=== PATIENT | male | born 1985 | race Caucasian/White ===

== ENCOUNTER 2016-06-12 16:25 | Inpatient (IN) | payer OTHER ==
--- NOTE | ~2016-06-12 | HP ---
Unit #: [id number] #: [id number] Patient: MARCO CRUZ [id number] [place] [address] [id number] I MR#: [id number] NAME: MARCO CRUZ ROOM: P184 Age: 31 Sex: M Admission Date: 06/12/2016 : 1985 Attending Physician: Al Matthews M.D. Admitting Physician: Al Matthews M.D. Primary Care Physician: Primary Care Physician No HISTORY AND PHYSICAL HISTORY OF PRESENT ILLNESS Marco is a 31 year old admitted to [facility] because of his continued polysubstance abuse. He has had numerous admissions to this facility. PAST MEDICAL HISTORY 1. Long history of polysubstance abuse to include IV drugs. 2. Hepatitis C. 3. Asthma. PAST SURGICAL HISTORY Right elbow. ALLERGIES No known drug allergies. SOCIAL HISTORY Smokes 1 pack per day. Denies alcohol. Admits to a long history of opioid abuse to include IV heroin. FAMILY HISTORY Medically noncontributory. REVIEW OF SYSTEMS CONSTITUTIONAL: No fever or chills. HEENT: Denies any sore throat, ear pain or runny nose. CARDIOVASCULAR: Denies chest pain, irregular heart rhythm or palpitations. CHEST: Denies shortness of breath or cough. No hemoptysis. GASTROINTESTINAL: Denies nausea, vomiting, diarrhea or chronic constipation. ENDOCRINE: Denies history of increased thirst or urination. No recent significant weight loss or gain. GENITOURINARY: Denies dysuria, frequency, or hematuria. SKIN: Denies any rashes. HEMATOLOGIC: Denies history of increased bleeding or bruising. MUSCULOSKELETAL: Denies any hot, swollen joints. No generalized muscle pain. NEUROLOGIC: Denies problems with vision or speech. No frequent, severe headaches. No numbness, tingling or weakness in any extremities. Denies loss of bladder or bowel control. CURRENT MEDICATIONS 1. Detox protocol. 2. Celexa 20 mg daily. Unit #: [id number] #: [id number] Patient: MARCO CRUZ 3. Proventil inhaler p.r.n. PHYSICAL EXAMINATION GENERAL: Alert, well-nourished, in no apparent distress. VITAL SIGNS: Blood pressure 100/50, heart rate 80, respirations 16, temperature 98.6. WEIGHT: 225. HEIGHT: 5 feet 11 inches. SKIN: Warm and dry without rash or lesion. HEENT: Normocephalic. TMs not viewed. Oral and nasal passages clear. Conjunctivae clear. PERRLA. EOMs intact. NECK: Supple without lymphadenopathy or thyromegaly. HEART: Regular rate and rhythm without murmur. LUNGS: Clear. ABDOMEN: Soft, nontender. : Not done. EXTREMITIES: No evidence of cyanosis, clubbing or edema. Moves all without focal deficit. NEUROLOGICAL: Grossly within normal limits. Cranial Nerves: II: Visual subramanian are intact. III, IV AND : Extraocular movements are intact. Pupils are equal, round and reactive to light. V: Facial sensation is grossly normal. VII: Facial movements and expression are normal. VIII: Auditory acuity grossly intact. IX, X: Uvula is midline. Phonation is normal. XI: Patient shrugs shoulders and turns head normally. XII: Tongue protrudes in the midline. Sensory and Motor Function: Sensory and motor sensation is grossly normal. Motor: moves all extremities well. Coordination: Gait is normal. Deep Tendon Reflexes: Intact. IMPRESSION Psychiatric admission. RECOMMENDATIONS PSYCHIATRIC: Per psychiatrist. MEDICAL: See no contraindications to participate in facility's activities. MEDICAL PROGNOSIS Good. MEDICAL CONDITION Stable. Dictated by... Daniel MoseleyAMuriel-Oneil. for Yuliana Ulloa/michell TD: 06/13/2016 17:00 JOB #: [id number] Unit #: [id number] #: [id number] Patient: MARCO CRUZ HISTORY AND PHYSICAL Page 1 of 1 X Ann Marie Jung HISTORY AND PHYSICAL
--- NOTE | ~2016-06-12 | PA ---
Unit #: [id number] #: [id number] Patient: MARCO CRUZ [id number] [place] [address] [id number] I MR#: [id number] NAME: MARCO CRUZ ROOM: P184 Age: 31 Sex: M Admission Date: 06/12/2016 : 1985 Date of Assessment: 06/13/2016 Attending Physician: Al Matthews M.D. Admitting Physician: Al Matthews M.D. Primary Care Physician: Primary Care Physician No PSYCHIATRIC ASSESSMENT INFORMANT(S) Patient, reliable. OLOP, reliable. CHIEF COMPLAINT Suicidal ideation and ongoing drug use. HISTORY OF PRESENT ILLNESS Marco is a 31-year-old man with several previous admissions to this facility who reports he has relapsed on the use of opioids. He has become increasingly depressed, hopeless, helpless, and had suicidal ideation with a plan to hang himself. He could not contract for safety and was admitted for stabilization. PAST PSYCHIATRIC HISTORY As noted, the patient had previous admissions to this facility for both chemical dependence and depression. He is noncompliant with antidepressant medications at this time. FAMILY PSYCHIATRIC HISTORY Please see previous assessment. SOCIAL HISTORY Marco is erratically housed and employed and has erratic psychosocial support. PAST MEDICAL HISTORY The patient suffers from asthma. MEDICATIONS Albuterol inhaler 2 puffs every 4 hours as needed for shortness of air. ALLERGIES None known. SUBSTANCE ABUSE HISTORY As noted the patient has an extensive history of opioid dependence. MENTAL STATUS EXAMINATION Marco presented as a mildly disheveled man who appeared his stated age. He was quiet but cooperative with the examination. Speech was soft but easily understood. Musculoskeletal examination was calm. Mood was depressed with congruent affect. He was alert and fully oriented. His memory and concentration were intact. His thought processes were logical Unit #: [id number] #: [id number] Patient: MARCO CRUZ with no active psychosis. He reported suicidal ideation with a plan to hang himself and could not contract for safety. Insight and judgment intact. Fund of knowledge and abstraction intact. ASSETS AND LIABILITIES The patient is youthful, voluntary for treatment. Liabilities: Include difficulty maintaining sobriety. ADMITTING DIAGNOSES AXIS I: Major depressive disorder, F33.2 Opioid dependence with withdrawal, F11.23. AXIS II: None acute. AXIS III: Asthma. PSYCHIATRIC PLAN/TREATMENT GOALS/DISCHARGE PLANNING Marco was admitted and placed on suicide precautions and opioid detox protocol. We will restart Celexa 20 mg daily and provide his albuterol inhaler as needed. He will enroll in dual diagnosis groups and activities. Treatment goals are resolution of SI, establishment of sobriety, improvement in insight, and improvement in coping skills. Discharge planning: Follow up with [facility] for mental health care and chemical dependence. ESTIMATED LENGTH OF STAY 5 days. Dictated by... Al Matthews M.D. CHARANJIT/michi TD: 06/14/2016 13:24 JOB #: [id number] PSYCHIATRIC ASSESSMENT Page 1 of 1 X Al Matthews MD PSYCHIATRIC ASSESSMENT
--- NOTE | ~2016-06-12 | DS ---
Unit #: [id number] #: [id number] Patient: MARCO CRUZ [id number] [place] [address] [id number] I MR#: [id number] NAME: MARCO CRUZ ROOM: P184 Age: 31 Sex: M Admission Date: 06/12/2016 : 1985 Discharge Date: 06/15/2016 Attending Physician: Al Matthews M.D. Primary Care Physician: Primary Care Physician No DISCHARGE SUMMARY REASON FOR ADMISSION Marco is a 31-year-old man with previous admission to this facility who recently overdosed, who relapsed in use of opiates. He had suicidal ideation with a plan to hang himself and was admitted for stabilization. LABORATORY DATA Please see hospital chart. HOSPITAL COURSE The patient was admitted and placed on suicide precautions and the opioid detox protocol. Citalopram 20 mg daily was restarted for depression and his albuterol inhaler was re-initiated. He had no significant adverse effects from his detox, and his physical examination was unremarkable. The patient participated only minimally in group activities, and on the date of discharge, he requested discharge against medical advice, declining to wait for followup to be arranged. At that time, he contracted for safety and was deemed to give a reliable contract. DISCHARGE DIAGNOSES AXIS I: Major depression, opioid dependence. AXIS II: None acute. AXIS III: Asthma. AXIS IV: AXIS V: DISCHARGE INSTRUCTIONS Instructions to the patient; follow up with chemical dependency program of the patient's choice and with his primary care physician. DISCHARGE MEDICATIONS None due to AMA nature of discharge. CONDITION AT DISCHARGE Fair. PROGNOSIS Fair. DIET AND ACTIVITY Ad nalini. Unit #: [id number] #: [id number] Patient: MARCO CRUZ Dictated by... Yuliana Carney/umesh TD: 08/23/2016 14:13 JOB #: [id number] DISCHARGE SUMMARY Page 1 of 1 X Al Matthews MD X DISCHARGE SUMMARY
== END 2016-06-15 15:45 | disposition left against medical advice (07) | DRG 894 ==
LOC: P1E 16:25
PROC: HZ2ZZZZ Detoxification Services for Substance Abuse Treatment (ICD-10-PCS; principal; 2016-06-12)
DX: F11.23 Opioid dependence with withdrawal (principal); R45.851 Suicidal ideations; F33.2 Major depressive disorder, recurrent severe without psychotic features; J45.909 Unspecified asthma, uncomplicated; B19.20 Unspecified viral hepatitis C without hepatic coma; F17.210 Nicotine dependence, cigarettes, uncomplicated

== ENCOUNTER 2016-06-29 21:00 | Inpatient (IN) | payer OTHER ==
--- NOTE | ~2016-06-29 | DS ---
Unit #: [id number] #: [id number] Patient: MARCO CRUZ [id number] [facility] [address] [place] [address] [id number] I MR#: [id number] NAME: MARCO CRUZ ROOM: 82 Age: 31 Sex: M Admission Date: 06/30/2016 : 1985 Discharge Date: 07/03/2016 Attending Physician: Al Matthews M.D. Primary Care Physician: Generic Doctor Not In System DISCHARGE SUMMARY REASON FOR ADMISSION Marco is a 31-year-old man with multiple admissions to this facility, who reports he was recently at a custodial house but relapsed on opiates. He had suicidal ideation and could not contract for safety. He was admitted for stabilization. DIAGNOSTIC STUDIES LABORATORY RESULTS: Please see hospital chart. HOSPITAL COURSE Marco was admitted and placed on suicide precautions and the opioid detox protocol. Since Celexa had not been effective in the past, Zoloft 50 mg daily was initiated for treatment of depression. He had [id number] detox symptomatology and participated rarely in groups and activities. On the date of discharge, he had obtained placement at a local custodial house and contracted for safety. DISCHARGE DIAGNOSES AXIS I: Major depression, opioid dependence. AXIS II: No diagnosis. AXIS III: History of hepatitis C. AXIS IV: AXIS V: DISCHARGE INSTRUCTIONS Follow up with primary care physician and custodial house of choice. DISCHARGE MEDICATIONS Zoloft 50 mg daily for depression. CONDITION AT DISCHARGE Fair. PROGNOSIS Fair. DIET AND ACTIVITY Ad nalini. Dictated by... Al Matthews M.D. Unit #: [id number] #: [id number] Patient: MARCO CRUZ [facility]/modl TD: 07/03/2016 23:32 JOB #: [id number] DISCHARGE SUMMARY Page 1 of 1 X Al Matthews MD X DISCHARGE SUMMARY
--- NOTE | ~2016-06-29 | PN ---
Unit #: [id number] #: [id number] Patient: MARCO CRUZ [id number] [facility] [address] [place] [address] [id number] MR#: [id number] NAME: MARCO CRUZ ROOM: P182 Age: 31 Sex: M Admission Date: 06/30/2016 : 1985 Attending Physician: Al Matthews M.D. Admitting Physician: Al Matthews M.D. Primary Care Physician: Generic Doctor Not In System [facility] PROGRESS NOTES DATE 07/02/2016 DISCUSSION Marco continues to have mild to moderate detox symptoms today and reports some ongoing thoughts of suicide. He is alert and fully oriented with no psychosis. He is not participating in unit groups and activities. ASSESSMENT Major depression, opiate dependence. PLAN Continue introduction of Zoloft and detox protocol. Dictated by... Al Matthews M.D. MRH/ts TD: 07/05/2016 07:44 JOB #: [id number] [facility] PROGRESS NOTES Page 1 of 1 X Al Matthews MD PROGRESS NOTE
--- NOTE | ~2016-06-29 | HP ---
Unit #: [id number] #: [id number] Patient: MARCO CRUZ [id number] [place] [address] [id number] I MR#: [id number] NAME: MARCO CRUZ ROOM: P182 Age: 31 Sex: M Admission Date: 06/30/2016 : 1985 Attending Physician: Al Matthews M.D. Admitting Physician: Al Matthews M.D. Primary Care Physician: Generic Doctor Not In System HISTORY AND PHYSICAL Marco is a 31-year-old male admitted on 06/30/[address] [facility] for detox from multiple substances. He had recent admission on 06/12/2016 for the same. I reviewed the history and physical from that admission and there are no changes. Dictated by... Meet Mcdowell/michell TD: 06/30/2016 15:37 JOB #: [id number] HISTORY AND PHYSICAL Page 1 of 1 X JACI VALLADARES APRN HISTORY AND PHYSICAL
--- NOTE | ~2016-06-29 | PA ---
Unit #: [id number] #: [id number] Patient: MARCO CRUZ [id number] [place] [address] [id number] I MR#: [id number] NAME: MARCO CRUZ ROOM: P182 Age: 31 Sex: M Admission Date: 06/30/2016 : 1985 Date of Assessment: 06/30/2016 Attending Physician: Al Matthews M.D. Admitting Physician: Al Matthews M.D. Primary Care Physician: Generic Doctor Not In System PSYCHIATRIC ASSESSMENT INFORMANTS Patient, reliable; OLOP, reliable. CHIEF COMPLAINT Suicidal ideation and detox. HISTORY OF PRESENT ILLNESS The patient is a 31-year-old man with multiple admissions to this facility and episodes of AMA discharge and relapse. The patient has been using heroin and crack and says he had suicide plan to "end it all" by overdosing on drugs. He is using three-quarters of a gram of heroin daily and 0.25 g daily of smoked crack cocaine. The patient recently lost his job due to a substance abuse problem and is temporarily homeless. He was unable to contract for safety and was readmitted for stabilization. PAST PSYCHIATRIC HISTORY This is this patient's 14th admission to this facility for chemical dependence and depression. He is typically noncompliant with treatment outside the hospital despite recommendations. FAMILY PSYCHIATRIC HISTORY Please see previous assessments. SOCIAL HISTORY As noted, the patient is single and has been working recently but lost his job due to complications from drug use. He is temporarily homeless with no financial and minimal psychosocial support. PAST MEDICAL HISTORY Significant for asthma. MEDICATIONS Albuterol inhaler 2 puffs every 4 hours as needed for shortness of air. ALLERGIES No known medication allergies. SUBSTANCE ABUSE HISTORY Extensive history of opioid dependence and stimulant abuse. MENTAL STATUS EXAMINATION The patient presented as a mildly disheveled man, who appeared his stated age. He was sleepy and had difficulty cooperating with the examination. Unit #: [id number] #: [id number] Patient: MARCO CRUZ VITAL SIGNS: Temperature 98.3, pulse 56, respirations 16, and blood pressure 121/65. Speech was soft and sparse. Musculoskeletal examination was slowed. Mood was irritable and depressed with a congruent affect. He was alert and appeared fully oriented. Memory and concentration appeared fair, but it was difficult to assess his thought processes due to his paucity of speech. He did endorse suicidal ideation with a plan to overdose on drugs. ASSETS AND LIABILITIES The patient is youthful and presents voluntarily for treatment. Liabilities include difficulty maintaining sobriety, recent loss of employment and threatened loss of housing. ADMITTING DIAGNOSIS AXIS I: Major depression F33.2. Opioid dependence with withdrawal, uncomplicated at F11.23. Cocaine abuse. AXIS II: No diagnosis. AXIS III: History of asthma. AXIS IV: AXIS V: PSYCHIATRIC PLAN The patient was admitted and placed on suicide precautions and the opioid detox protocol. Having failed several trials of Celexa, we will start Zoloft 50 mg daily. His albuterol inhaler will be provided as indicated. He will enroll in dual diagnosis treatment goals and activities. TREATMENT GOALS Resolution of SI, improvement in insight, establishment of sobriety, improvement in coping skills. DISCHARGE PLANNING Follow up with [facility]. ESTIMATED LENGTH OF STAY 5 days. Dictated by... Al Matthews M.D. CHARANJIT/umesh TD: 06/30/2016 14:33 JOB #: [id number] PSYCHIATRIC ASSESSMENT Page 1 of 1 X Al Matthews MD X PSYCHIATRIC ASSESSMENT
[2016-07-02 12:32] LABS: URINE APPEARANCE CLEAR; URINE BLOOD NEG (NEG); URINE COLOR DK YELLOW; URINE GLUCOSE NEG (NEG); URINE KETONE 2+ (NEG); URINE LEUKOCYTE ESTERASE NEG (NEG); URINE NITRATE NEG (NEG); URINE PROTEIN NEG (NEG); URINE SPECIFIC GRAVITY 1.033 (1.003-1.035)
[2016-07-02 12:40] LABS: URINE BILIRUBIN NEG (NEG)
[2016-07-02 12:42] LABS: AMPHETAMINE NEG (NEG); BARBITURATES NEG (NEG); BENZODIAZEPINES NEG (NEG); COCAINE NEG (NEG); MARIJUANA NEG (NEG); OPIATES POS (NEG); TRICYCLIC ANTIDEPRESSANTS NEG (NEG); U METHADONE NEG (NEG)
== END 2016-07-03 12:20 | DRG 885 ==
LOC: P1E 06-30 00:20
PROVIDERS: Psychiatry & Neurology Psychiatry
DX: F33.2 Major depressive disorder, recurrent severe without psychotic features (principal); R45.851 Suicidal ideations; F11.23 Opioid dependence with withdrawal; F14.10 Cocaine abuse, uncomplicated; J45.909 Unspecified asthma, uncomplicated
CPT/HCPCS: 80307; 81003

== ENCOUNTER 2016-07-14 | Inpatient (IN) | payer OTHER ==
--- NOTE | ~2016-07-14 | PN ---
Unit #: [id number] #: [id number] Patient: MARCO CRUZ [id number] [facility] [address] [place] [address] [id number] I MR#: [id number] NAME: MARCO CRUZ ROOM: P184 Age: 31 Sex: M Admission Date: 07/14/2016 : 1985 Attending Physician: Al Matthews M.D. Admitting Physician: Al Matthews M.D. Primary Care Physician: Laine Primary Care Physician [facility] PROGRESS NOTES DATE This patient was seen and evaluated on 07/15/2016. DISCUSSION Upon today's visit, Mr. Cruz was found resting comfortably in bed. The patient appeared disheveled and was resting comfortably. The patient was easily aroused and reports he is "alright". At the time, he currently denies any signs or symptoms of withdrawal and reports that the medications being administered for withdrawal are effective. He has not been participating in groups or programming at this time and has been resting in his bed per staff report. Mental status at this time reveals a 31-year-old disheveled male resting in bed with poor personal hygiene. He is alert and oriented to person, place, and general circumstance. His mood is dysphoric with a congruent affect. His speech was relevant, coherent, with a soft tone and normal rate. His thought processes were logical. He denied any suicidal or homicidal ideation. He denied auditory visual hallucinations and no overt symptoms of psychosis was noted. His memory and intellectual functioning are grossly intact. Judgment and insight are limited at this time. He reports adequate sleep and appetite and denies any side affects to the medication. The patient had little involvement with treatment and programming at this time, not attending group. We will continue to monitor this patient per opioid detox protocol with a (1) assessment and vital signs every 6 hours as well as provide comfort medications as needed. Additional job [id number] Dictated by... CANDICE Moy TD: 07/17/2016 08:41 JOB #: [id number] Unit #: [id number] #: [id number] Patient: MARCO CRUZ [facility] PROGRESS NOTES Page 1 of 1 X RORY PORTER PROGRESS NOTE
--- NOTE | ~2016-07-14 | PA ---
Unit #: [id number] #: [id number] Patient: MARCO CRUZ [id number] [facility] [address] [place] [address] [id number] I MR#: [id number] NAME: MARCO CRUZ ROOM: P184 Age: 31 Sex: M Admission Date: 07/14/2016 : 1985 Date of Assessment: 07/14/2016 Attending Physician: Al Matthews M.D. Admitting Physician: Al Matthews M.D. Primary Care Physician: Primary Care Physician No PSYCHIATRIC ASSESSMENT DATE OF SERVICE 07/14/2016. INFORMANTS The patient is reliable and [facility] reliable. CHIEF COMPLAINT Suicidal ideation and heroin abuse and dependence. HISTORY OF PRESENT ILLNESS The patient is a 31-year-old male with multiple admissions to this facility and episodes of AMA discharge and relapse. The patient reports he has been using heroin 0.5 g IV daily. He was admitted with suicidal ideation and no specific plan at the bedtime. He denies using alcohol or any other illicit substances at this time. Most recently, the patient lost his job. He has substance use problem and is temporarily homeless. At the time of assessment, he was able to contract for safety and denies suicidal or homicidal ideation. PAST PSYCHIATRIC HISTORY The patient has numerous admissions to this facility for chemical dependency and depression and he is typically noncompliant with treatment outside the hospital despite recommendations from staff. SOCIAL HISTORY As noted, the patient is single and has been working recently, but lost his job due to complications from drug use. He is temporarily homeless. He has no financial and minimal psychosocial support. PAST MEDICAL HISTORY Significant for asthma. MEDICATIONS See medical record. ALLERGIES No known medication allergies. SUBSTANCE ABUSE HISTORY Extensive history of opioid dependence and stimulant abuse. MENTAL STATUS EXAMINATION At this time, the patient presented as mildly disheveled man who appears Unit #: [id number] #: [id number] Patient: MARCO CRUZ his stated age. He was very sleepy and lying in bed and had difficulty cooperating with my exam. His speech was soft and sparse. His mood was depressed with a congruent affect. He was alert and appeared fully oriented. Denied auditory or visual hallucinations. His memory and concentration appeared fair, but is difficult to assess due to his difficulty staying awake for this examination. At that time, he did not endorse suicidal ideation and denied homicidal ideation as well and was able to contract for safety. ASSETS AND LIABILITIES The patient is youthful present voluntarily for treatment. Liabilities include poor social support system, difficulty maintaining sobriety, and recent loss of employment. ADMITTING DIAGNOSES AXIS I: Major depressive disorder, F33.2; opioid dependence with withdrawal uncomplicated, F11.23. AXIS II: Deferred. AXIS III: Asthma. AXIS IV: AXIS V: PSYCHIATRIC PLAN The patient was admitted and placed on suicidal precautions and opioid detox protocol. His albuterol inhaler will be provided as indicated and will enroll in dual diagnosis treatment goals and activities. TREATMENT GOALS Improvement in insight, establishment of sobriety, and improvement in coping skills. DISCHARGE PLAN We will follow up with community mental health treatment resources. ESTIMATED LENGTH OF STAY 5 days. Dictated by... CANDICE Moy/umesh TD: 07/16/2016 02:07 JOB #: [id number] PSYCHIATRIC ASSESSMENT Page 1 of 1 X RORY PORTER PSYCHIATRIC ASSESSMENT
--- NOTE | ~2016-07-14 | HP ---
Unit #: [id number] #: [id number] Patient: MARCO CRUZ [id number] [place] [address] [id number] MR#: [id number] NAME: MARCO CRUZ ROOM: P184 Age: 31 Sex: M Admission Date: 07/14/2016 : 1985 Attending Physician: Al Matthews M.D. Admitting Physician: Al Matthews M.D. Primary Care Physician: Primary Care Physician No HISTORY AND PHYSICAL The patient is a 31-year-old male admitted to [facility] on 07/14/2016. The patient has had other admissions to this facility where a full history and physical were completed. Please see most recent H & P dated 06/13/2016. I have reviewed this H & P and no changes need to be made. Dictated by... Meet Whiting/richard TD: 07/15/2016 21:25 JOB #: [id number] HISTORY AND PHYSICAL Page 1 of 1 X YANDY NICHOLSON APRN HISTORY AND PHYSICAL
--- NOTE | ~2016-07-14 | DS ---
Unit #: [id number] #: [id number] Patient: MARCO CRUZ [id number] [facility] [address] [place] [address] [id number] MR#: [id number] NAME: MARCO CRUZ ROOM: P184 Age: 31 Sex: M Admission Date: 07/14/2016 : 1985 Discharge Date: 07/16/2016 Attending Physician: Al Matthews M.D. DISCHARGE SUMMARY REASON FOR ADMISSION Marco is a 31-year-old man, well known to me from multiple admissions to this facility and multiple AMA discharges. The patient reports that after returning at [facility], he has relapsed on heroin and is temporarily homeless. He had suicidal ideation with no specific plan and was admitted for stabilization. DIAGNOSTIC STUDIES LABORATORY RESULTS: Please see hospital chart. HOSPITAL COURSE The patient was admitted on the opioid detox protocol and suicide precautions. Other medications were restarted, unchanged. He had an uneventful period of hospitalization and denied any further suicidal ideation after admission. He was able to regain his housing and was discharged in stable condition. DISCHARGE DIAGNOSES AXIS I: Major depression and opioid dependence. AXIS II: Antisocial traits. AXIS III: History of asthma. AXIS IV: AXIS V: DISCHARGE INSTRUCTIONS The patient to follow up with primary care physician and [facility] of choice. DISCHARGE MEDICATIONS No prescriptions were provided. The patient is to continue on Zoloft 50 mg daily for depression, trazodone 100 mg at bedtime as needed for insomnia, and Proventil inhaler 2 puffs every 4 hours as needed for shortness of air from his primary care physician. CONDITION AT DISCHARGE Improved. PROGNOSIS Fair to good. DIET AND ACTIVITY Ad nalini. Unit #: [id number] #: [id number] Patient: MARCO CRUZ Dictated by... Yuliana Carney/umesh TD: 07/17/2016 15:06 JOB #: [id number] DISCHARGE SUMMARY Page 1 of 1 X Al Matthews MD DISCHARGE SUMMARY
== END 2016-07-16 12:00 | DRG 881 ==
LOC: P1E 03:53
PROC: HZ2ZZZZ Detoxification Services for Substance Abuse Treatment (ICD-10-PCS; principal; 2016-07-14)
DX: F32.9 Major depressive disorder, single episode, unspecified (principal); F11.23 Opioid dependence with withdrawal; J45.909 Unspecified asthma, uncomplicated; F60.2 Antisocial personality disorder